=== PATIENT | female | born 1990 | race Caucasian/White ===

== ENCOUNTER 2018-06-07 12:55 | Emergency (ER) | payer OTHER ==
[~2018-06-07] VITALS: Ht 172.7 cm; Wt 81.7 kg
[~2018-06-07 12:55] MED LIST: ABILIFY 5 MG TAB5 M1 PO; ACYCLOVIR 400400 M1; CELEBREX 200 M200 M1 PO; FLAGYL500 MG PO; IBUPROFEN 800800 M1 PO; LEXAPRO 10 MG T10 M2 PO; NOHOMEMEDICATIONS; NORCO 5-325 TA1 EACH PO; PEPCID20 MG PO; PEPCID40 MG PO; PRENATAL; ULTRAM 50MG TAB50 MG PO; ZOFRAN 4 MG ORAL4 MG PO
[2018-06-07 13:12] LABS: HEMATOCRIT 42.6 % (37.0-47.0); HEMOGLOBIN 14.4 gm/dL (12.0-15.0); MCH 30.1 pg (26.0-34.0); MCHC 33.8 g/dL (28.0-37.0); MPV 8.9 fl. (7.2-11.1); RBC 4.79 mil/uL (4.20-5.00); RDW-CV 12.6 % (10.5-14.5); WBC 8.1 thou/uL (4.0-11.0)
[2018-06-07 13:21] LABS: CALCIUM 8.4 mg/dL (8.5-10.1); CREATININE 1.1 mg/dL (0.6-1.3); POTASSIUM 3.2 mmol/L (3.5-5.1)
[2018-06-07 13:24] LABS: ALBUMIN 3.9 g/dL (3.4-5.0); TOTAL BILIRUBIN 0.2 mg/dL (<0.1-1.0); TOTAL PROTEIN 7.2 g/dL (6.4-8.2)
[2018-06-07 13:26] LABS: ACETAMINOPHEN 72 ug/mL (10-30)
[2018-06-07 13:28] LABS: ALCOHOL < 10 mg/dL (<10); SALICYLATE 30.4 mg/dL (2.8-20.0)
[2018-06-07 13:39] LABS: URINE BILIRUBIN NEGATIVE (Negative); URINE BLOOD NEGATIVE (Negative); URINE CLARITY CLEAR; URINE COLOR YELLOW; URINE GLUCOSE-RANDOM NEGATIVE (Negative); URINE KETONES 1+ (Negative); URINE LEUKOCYTES NEGATIVE (Negative); URINE NITRITE NEGATIVE (Negative); URINE PROTEIN NEGATIVE (Negative); URINE UROBILINOGEN 0.2 E.U./dl (0.2-1.0)
[2018-06-07 14:01] LABS: AMP/METHAMP POSITIVE (Negative); BARBITURATES Negative (Negative); BENZODIAZEPINES Negative (Negative); COCAINE Negative (Negative); METHADONE Negative (Negative); OPIATES Negative (Negative); PCP Negative (Negative); THC Negative (Negative)
[2018-06-07 15:21] LABS: SALICYLATE 28.2 mg/dL (2.8-20.0)
--- NOTE | 2018-06-07 15:23 | EKG ---
[place] [address] ELECTROCARDIOGRAM REPORT Name: JODI GARCIA Room: [facility]#: [id number] Admission: 06/07/18 Attend Phys: Discharge: Date of : 86 Report #: [id number] THIS REPORT FOR: //name// [facility] ED Test Date: 2018-06-07 Test Time: 13:08:45 Pat Name: JODI GARCIA Department: Room: Gender: F Security Orderly: Esau SINGER : 1990 Requested By: Jaimie Fletcher Order Number: [id number] MD: Efrain Parmar Measurements Intervals [place] Rate: 68 P: 5 W[place]: 145 QRS: 55 QRSD: 87 T: 26 QT: 435 QTc: 463 Interpretive Statements Sinus rhythm Borderline Q waves in inferior leads Compared to ECG 02/21/2017 19:24:18 Atrial abnormality no longer present Electronically Signed On 06-07-2018 15:23:12 CDT by Efrain Parmar [email or web address] <ELECTRONICALLY SIGNED> By: Efrain Parmar MD, [facility] 06/07/18 1523 07 Efrain Parmar MD, FACC /EPI
[2018-06-07 18:19] LABS: SALICYLATE 24.2 mg/dL (2.8-20.0)
[2018-06-08 08:13] VITALS: BP 109/77
== END 2018-06-08 08:14 | disposition short-term general hospital (02) ==
LOC: M.ERS 12:55
PROVIDERS: Personal Emergency Response Attendant
DX: R45.851 Suicidal ideations (principal); F32.9 Major depressive disorder, single episode, unspecified; F19.10 Other psychoactive substance abuse, uncomplicated; T39.1X2A Poisoning by 4-Aminophenol derivatives, intentional self-harm, initial encounter; R11.10 Vomiting, unspecified; M32.9 Systemic lupus erythematosus, unspecified; F17.210 Nicotine dependence, cigarettes, uncomplicated; Y92.89 Other specified places as the place of occurrence of the external cause